=== PATIENT | female | born 1970 | race Two or more races ===

== ENCOUNTER 2018-11-14 08:00 | Outpatient (CLI) | payer MEDICAID ==
[2018-11-14 18:11] LABS: BASOPHILS % (AUTO) 0.4 %; EOSINOPHILS # (AUTO) 0.3 10^3/uL (0.0-0.7); EOSINOPHILS % (AUTO) 6.9 %; HGB - HEMOGLOBIN 13.5 g/dL (12.0-16.0); LYMPHOCYTES # (AUTO) 2.1 10^3/uL (1.5-3.5); LYMPHOCYTES % (AUTO) 46.6 %; MEAN CORPUSCULAR HEMOGLOBIN 29.9 pg (27.0-31.0); MEAN CORPUSCULAR HGB CONC 33.5 g/dL (32.0-36.0); MEAN CORPUSCULAR VOLUME 89.3 fL (81.0-99.0); MEAN PLATELET VOLUME 8.4 fL (7.9-10.8); MONOCYTES # (AUTO) 0.2 10^3/uL (0.0-1.0); MONOCYTES % (AUTO) 5.2 %; NEUTROPHILS # (AUTO) 1.8 10^3/uL (1.5-6.6); NEUTROPHILS % (AUTO) 40.9 %; PLT - PLATELET COUNT 287 10^3/uL (130-450); RED BLOOD COUNT 4.52 10^6/uL (4.20-5.40); RED CELL DISTRIBUTION WIDTH 12.5 % (12.0-15.0); WHITE BLOOD COUNT 4.4 x10^3/uL (4.8-10.8)
[2018-11-14 19:08] LABS: ALBUMIN 3.9 g/dL (3.2-5.5); ALBUMIN/GLOBULIN RATIO 1.4 (1.0-2.2); ALKALINE PHOSPHATASE 43 IU/L (42-121); ALT ALANINE AMINOTRANSFERASE 21 IU/L (10-60); AST ASPARTATE AMINOTRANSFERASE 18 IU/L (10-42); BILIRUBIN,TOTAL 0.9 mg/dL (0.2-1.0); BUN - BLOOD UREA NITROGEN 17 mg/dL (6-20); CARBON DIOXIDE - CO2 27 mmol/L (21-32); CHLORIDE 103 mmol/L (101-111); CHOL/HDL RATIO 3.2 (<4.4); CHOLESTEROL 167 mg/dL; CREATININE 0.5 mg/dL (0.4-1.0); GFR - MDRD 131 (>89); GLUCOSE 89 mg/dL (70-100); HDL CHOLESTEROL 53 mg/dL; SODIUM 136 mmol/L (135-145); TOTAL PROTEIN 6.6 g/dL (6.7-8.2)
[2018-11-14 19:49] LABS: HEMOGLOBIN A1C 0.48 g/dL; HEMOGLOBIN A1C % 5.3 % (4.6-6.2)
[2018-11-14 19:52] LABS: LDL CHOLESTEROL,DIRECT 123 mg/dL; LDLD/HDL RATIO 2.3 (<4.4)
== END 2018-11-14 23:59 | disposition home or self-care (01) ==
LOC: LAB.S 08:00
PROVIDERS: ATTEND Nurse Practitioner
DX: Z13.6 Encounter for screening for cardiovascular disorders (principal); Z13.89 Encounter for screening for other disorder; Z13.1 Encounter for screening for diabetes mellitus; Z13.29 Encounter for screening for other suspected endocrine disorder
CPT/HCPCS: 36415; 80053; 80061; 82306; 83036; 83721; 84443; 85025

== ENCOUNTER 2018-12-07 14:37 | Outpatient (CLI) | payer MEDICAID ==
--- NOTE | 2018-12-08 09:36 | Mammography Report ---
Reason: MAMMOGRAM YEARLY SCREENINGF Procedure Date: 12/07/2018 Accession Number: [id number] / [id number] Procedure: ANETTE - Screening Mammo w/[facility] CPT Code: FULL RESULT: EXAM: Screening Mammo w/[facility] DATE: 12/07/2018 3:07 PM CLINICAL HISTORY: Screening encounter. No reported risk factors. TECHNIQUE: (B) - Bilateral CC, laterally exaggerated CC, MLO views were obtained. COMPARISON: 04/07/2016 through 04/01/2012. PARENCHYMAL PATTERN: (VD) - The breast(s) demonstrate(s) extremely dense parenchyma, limiting the sensitivity of mammography. FINDINGS: In the right breast approximately 4.1 cm deep to the nipple centrally is an ill-defined hyperdense increasing focal asymmetry possibly associated with calcifications which requires additional mammographic imaging including spot magnification views and ultrasound, best seen on cc view, 3-D image 34. In the left breast is a posterior area of calcifications which is increased in prominence over time, 4.4 cm deep to the nipple on the MLO view and 5.5 cm deep to the nipple on the cc view, 3-D cc image 10 and possibly 3-D image and MLO projection, 30. This finding requires additional mammographic and sonographic workup including spot magnification views. IMPRESSION: Incomplete examination. BI-RADS category 0. RECOMMENDATION: (ADDMU) - Additional views using both Mammography and Ultrasound recommended. Additional mammography and ultrasound examination of the left and right breasts including spot magnification views on both sides. BI-RADS CATEGORY: (0) - Incomplete Examination - need additional evaluation. STANDARD QUALIFYING STATEMENTS: 1. This examination was not reviewed with the aid of Computer-Aided Detection (CAD). 2. A negative or benign imaging report should not preclude biopsy if clinically suspicious findings are present. 3. Dense breasts may obscure an underlying neoplasm. 4. This examination was reviewed with the aid of 3D breast imaging (tomosynthesis).
== END 2018-12-07 14:38 | disposition home or self-care (01) ==
LOC: DI 14:37
PROVIDERS: ATTEND Nurse Practitioner
DX: Z12.31 Encounter for screening mammogram for malignant neoplasm of breast (principal); R92.1 Mammographic calcification found on diagnostic imaging of breast
CPT/HCPCS: 77063; 77067

== ENCOUNTER 2018-12-23 09:38 | Outpatient (CLI) | payer MEDICAID ==
--- NOTE | 2018-12-23 13:08 | Mammography Report ---
Reason: ABNORMAL MAMMOGRAM Procedure Date: 12/23/2018 Accession Number: [id number] / [id number] Procedure: ANETTE - Diag Special Views Dig Bilat CPT Code: FULL RESULT: EXAM: Diag Special Views Dig Bilat DATE: 12/23/2018 10:22 AM CLINICAL HISTORY: Diagnostic examination. The patient is recalled from screening for a increasing right breast focal asymmetry in the left breast increasing area of calcifications. TECHNIQUE: (B) - Bilateral bilateral ML views as well as right spot CC and spot MLO views and left spot magnified ML and left spot magnified CC views. COMPARISON: 12/07/2018 through 04/01/2012. PARENCHYMAL PATTERN: (VD) - The breast(s) demonstrate(s) extremely dense parenchyma, limiting the sensitivity of mammography. FINDINGS: Right: The right breast focal asymmetry resolves with spot views and no mass or architectural distortion is identified tomographically. There are no suspicious masses, calcifications, or areas of distortion in the right breast. Negative examination. BI-RADS Category 1 for the right breast. Left: The left breast grouping of calcifications approximately 5.8 cm from the nipple in the retroareolar breast cone posteriorly is confirmed on spot magnified ML and spot magnified CC views with probably benign morphology. There are no suspicious masses, calcifications or areas of distortion in the left breast. IMPRESSION: Probably Benign. BI-RADS category 3. RECOMMENDATION: (6MOS) - Recommend 6 month follow-up exam. With spot magnification views of the left breast only. The right breast returns to screening. BI-RADS CATEGORY: (3) - Probably Benign. STANDARD QUALIFYING STATEMENTS: 1. This examination was not reviewed with the aid of Computer-Aided Detection (CAD). 2. A negative or benign imaging report should not preclude biopsy if clinically suspicious findings are present. 3. Dense breasts may obscure an underlying neoplasm. 4. This examination was reviewed with the aid of 3D breast imaging (tomosynthesis).
== END 2018-12-23 09:39 | disposition home or self-care (01) ==
LOC: DI 09:38
PROVIDERS: ATTEND Nurse Practitioner
DX: R92.1 Mammographic calcification found on diagnostic imaging of breast (principal)
CPT/HCPCS: 77062; 77066

== ENCOUNTER 2019-07-13 09:00 | Outpatient (CLI) | payer MEDICAID ==
--- NOTE | 2019-07-13 14:06 | Mammography Report ---
Reason: ABN MAMMO - 6 MONTH F U Procedure Date: 07/13/2019 Accession Number: [id number] / [id number] Procedure: ANETTE - Diagnostic Dig LT CPT Code: Final Report FULL RESULT: EXAM: Diagnostic Dig LT DATE: 07/13/2019 10:00 AM CLINICAL HISTORY: Six-month follow-up of probably benign mammographic calcifications. TECHNIQUE: (L) - Left left spot magnified CC, left spot CC, left ML and left spot magnified ML as well as left spot ML views are obtained. COMPARISON: 12/23/2018 through 04/02/2009. PARENCHYMAL PATTERN: (VD) - The breast(s) demonstrate(s) extremely dense parenchyma, limiting the sensitivity of mammography. FINDINGS: The left breast grouping of calcifications in the posterior left breast approximately 5.7 cm from the nipple is redemonstrated without suspicious interval change, probably benign. There are no suspicious masses, calcifications, or areas of distortion. IMPRESSION: Probably Benign. BI-RADS category 3. RECOMMENDATION: (6MOS) - Recommend 6 month follow-up exam. BI-RADS CATEGORY: (3) - Probably Benign. STANDARD QUALIFYING STATEMENTS: 1. This examination was not reviewed with the aid of Computer-Aided Detection (CAD). 2. A negative or benign imaging report should not preclude biopsy if clinically suspicious findings are present. 3. Dense breasts may obscure an underlying neoplasm. 4. This examination was reviewed with the aid of 3D breast imaging (tomosynthesis).
== END 2019-07-13 09:01 | disposition home or self-care (01) ==
LOC: DI 09:00
PROVIDERS: ATTEND Internal Medicine
DX: R92.1 Mammographic calcification found on diagnostic imaging of breast (principal)

== ENCOUNTER 2019-07-23 09:09 | Outpatient (CLI) | payer MEDICAID ==
--- NOTE | 2019-07-24 02:40 | Ultrasound Report ---
Reason: ENLARGED UTERUS Procedure Date: 07/23/2019 Accession Number: [id number] / [id number] Procedure: US - Pelvic w/Transvaginal CPT Code: Final Report FULL RESULT: EXAM: PELVIC ULTRASOUND EXAM DATE: 07/23/2019 10:51 AM. CLINICAL HISTORY: ENLARGED UTERUS. COMPARISON: 11/01/2009. TECHNIQUE: Realtime transabdominal pelvic scan performed to identify the uterus and adnexa and as an overview of other pelvic structures, followed by transvaginal scan to provide greater detail of the uterus and adnexa, with static image documentation. FINDINGS: Uterus: 8.8 x 4.0 x 4.5 cm, volume 83 cc. Anteverted position. Normal overall size. Masses: Posterior right-sided intramural mass at the cervix measuring 2.4 x 2.3 x 2.4 cm. Endometrium: 3 mm. Normal. Cervix: As noted above, posterior right-sided intramural mass in the cervix. Right Ovary: 2.8 x 2.2 x 2.8 cm, volume 9.2 cc. Small cyst measuring 2.1 x 1.3 x 2.0 cm. Normal Doppler flow signal seen in the ovary. Left Ovary: Not seen due to bowel gas. Free Fluid: None. Other: None. IMPRESSION: 1. Intramural mass in the cervix measuring 2.4 x 2.3 x 2.4 cm, possibly fibroid. Other cervical pathology including malignancy not entirely excluded. 2. Right ovary appears normal. Left ovary not seen due to bowel gas. RADIA
== END 2019-07-23 09:10 | disposition home or self-care (01) ==
LOC: DI 09:09
PROVIDERS: ATTEND Obstetrics & Gynecology
DX: N88.9 Noninflammatory disorder of cervix uteri, unspecified (principal)
CPT/HCPCS: 76830; 76856

== ENCOUNTER 2019-09-07 08:06 | Day surgery (SDC) | payer MEDICAID ==
[2019-09-07] MEDS ORDERED: LACTATED RINGERS 1,000 ML IV ONE (08:08)
[2019-09-07] MEDS ORDERED: fentaNYL 250 MCG/5 ML VIAL IVP ONE (09:46)
[2019-09-07] MEDS ORDERED: MIDAZOLAM 2 MG/2 ML VIAL IVP ONE (09:46)
[2019-09-07] MEDS ORDERED: LACTATED RINGERS 500 ML IV ONE (10:28)
[2019-09-07 11:13] VITALS: BP 104/66
== END 2019-09-07 08:07 | disposition home or self-care (01) ==
LOC: SDS 08:06
PROVIDERS: ATTEND Surgery
DX: Z12.11 Encounter for screening for malignant neoplasm of colon (principal); K64.8 Other hemorrhoids; K57.30 Diverticulosis of large intestine without perforation or abscess without bleeding
CPT/HCPCS: 45378; J3010; J7120

== ENCOUNTER 2019-10-23 14:55 | Outpatient (CLI) | payer MEDICAID ==
--- NOTE | 2019-10-24 09:47 | Ultrasound Report ---
Reason: CERVICAL FIBROID Procedure Date: 10/23/2019 Accession Number: [id number] / [id number] Procedure: US - Pelvic w/Transvaginal CPT Code: Final Report FULL RESULT: EXAM: PELVIC ULTRASOUND EXAM DATE: 10/23/2019 04:40 PM. CLINICAL HISTORY: Cervical fibroid. COMPARISON: PELVIC W/TRANSVAGINAL 07/23/2019 9:17 AM. TECHNIQUE: Realtime transabdominal pelvic scan performed to identify the uterus and adnexa and as an overview of other pelvic structures, followed by transvaginal scan to provide greater detail of the uterus and adnexa, with static image documentation. FINDINGS: Uterus: 7.7 x 3.3 x 4.7 cm, volume 63 cc. Anteverted position. Normal overall size and echotexture. Masses: None. Endometrium: 5 mm. Normal. Cervix: There is a probable posterior intramural cervical fibroid measuring 2.7 x 2.2 x 2.2 cm, previously 2.4 x 2.4 x 2.3, not significantly changed. The margins of the lesion are ill-defined. Trace fluid in the endocervical canal present. Right Ovary: 2.4 x 1.5 x 2.5 cm, volume 4.8 cc. Normal echotexture and blood flow. Left Ovary: 3.5 x 2.2 x 2.5 cm, volume 10.5 cc. Normal echotexture and blood flow. Free Fluid: None. Other: None. IMPRESSION: 1. 2.7 cm probable posterior intramural cervical fibroid not significantly changed given the expected ultrasound measurement variability. The margins are ill-defined as before. An additional 12 month follow-up may be considered. 2. Adnexa within normal limits. RADIA
== END 2019-10-23 14:56 | disposition home or self-care (01) ==
LOC: DI 14:55
PROVIDERS: ATTEND Obstetrics & Gynecology
DX: D25.9 Leiomyoma of uterus, unspecified (principal)
CPT/HCPCS: 76830; 76856

== ENCOUNTER 2020-01-30 09:12 | Outpatient (CLI) | payer MEDICAID ==
--- NOTE | 2020-01-31 15:51 | Mammography Report ---
BILATERAL DIGITAL DIAGNOSTIC MAMMOGRAM 3D/2D: 01/30/2020 CLINICAL: Patient returns for 6 month follow up left breast for calcifications. routine screening rig ht breast. Comparison is made to exams dated: 07/13/2019 mammogram, 12/23/2018 mammogram, 04/07/2016 mammogram, mammogram, 07/10/2013 mammogram, and 04/01/2012 mammogram - [facility]. The tissue of both breasts is extremely dense, which lowers the sensitivity of mammography. There is an irregular equal density asymmetry with an indistinct margin in the right breast middle de pth central to the nipple seen on the craniocaudal view only but likely within the superior right kat ast. There are stable grouped fine calcifications in the left breast at 11 o'clock middle depth. No other significant masses or calcifications are seen in either breast. IMPRESSION: INCOMPLETE: NEEDS ADDITIONAL IMAGING EVALUATION The irregular equal density asymmetry in the right breast middle depth central to the nipple seen on the craniocaudal view only is indeterminate. An ultrasound is recommended and will be performed imme diately following this study. The stable grouped fine calcifications in the left breast at 11 o'clock middle depth resemble milk of calcium and are probably benign. A follow-up mammogram in 6 months is recommended. This exam was interpreted at Station ID: [id number]. NOTE: For mammograms, a report in lay terms will be sent to the patient. Approximately 15% of breast malignancies will not be visualized mammographically. In the management of a palpable breast mass, a negative mammogram must not discourage biopsy of a clinically suspicious lesion. Electronically Signed By: Salinas Perry M.D. ddp/:01/30/2020 11:53:56 ACR BI-RADS Category 0: Incomplete 3340F PARENCHYMAL PATTERN: (VD) - The breast(s) demonstrate(s) extremely dense parenchyma, limiting the sen sitivity of mammography. BI-RADS CATEGORY: (0) - 0 Ultrasound [id number] Immediate follow-up LATERALITY: (B)
--- NOTE | 2020-01-31 15:51 | Ultrasound Report ---
LIMITED ULTRASOUND OF RIGHT BREAST: 01/30/2020 CLINICAL: Patient returns today to evaluate a density in the right breast. Comparison is made to exams dated: 01/30/2020 mammogram, 07/13/2019 mammogram, 12/23/2018 mammogram, mammogram, 11/02/2014 mammogram, and 07/10/2013 mammogram - [facility]. Color flow and real-time ultrasound of the right breast 12 o'clock region were performed on the areas of interest. There is a 1.2 cm x 0.3 cm x 1.1 cm oval cyst with a septated internal wall in the right breast at 12 o'clock anterior depth. This oval cyst displays a well-defined boundary and posterior acoustic enha ncement. This likely correlates with mammography findings. Color flow imaging demonstrates that the re is no vascularity present. IMPRESSION: PROBABLY BENIGN The 1.2 cm x 0.3 cm x 1.1 cm oval cyst in the right breast is consistent with a complicated cyst and is probably benign. Follow-up mammogram and ultrasound in 6 months are recommended. A follow-up mammogram and an ultrasound in 6 months are recommended to demonstrate stability. This exam was interpreted at Station ID: [id number]. Electronically Signed By: Salinas Perry M.D. ddmignon/:01/30/2020 12:18:30 Ultrasound BI-RADS: 3 Probably benign BI-RADS CATEGORY: (3) - 3 Mammo and US [id number] 6 month follow-up LATERALITY: (B)
== END 2020-01-30 09:13 | disposition home or self-care (01) ==
LOC: DI 09:12
PROVIDERS: ATTEND Obstetrics & Gynecology
DX: N60.01 Solitary cyst of right breast (principal)
CPT/HCPCS: 76642; 77066

== ENCOUNTER 2020-04-17 10:59 | Outpatient (CLI) | payer MEDICAID ==
[2020-04-17 15:34] LABS: % IRON SATURATION 40 % (20-50); CHOL/HDL RATIO 3.2 (<4.4); CHOLESTEROL 215 mg/dL; HDL CHOLESTEROL 68 mg/dL; IRON 119 ug/dL (28-170); LDL CHOLESTEROL,CALCULATED 139 mg/dL; TOTAL IRON BINDING CAPACITY 297 ug/dL (250-450); TRANSFERRIN 212 mg/dL (192-382); VLDL CHOLESTEROL 8 mg/dL
[2020-04-17 15:45] LABS: FERRITIN 87.3 ng/mL (11.0-306.8)
[2020-04-17 19:59] LABS: HEMOGLOBIN A1c% 5.5 % (4.27-6.07)
== END 2020-04-17 11:00 | disposition home or self-care (01) ==
LOC: LAB.S 10:59
PROVIDERS: ATTEND Obstetrics & Gynecology
DX: Z13.220 Encounter for screening for lipoid disorders (principal); E55.9 Vitamin D deficiency, unspecified; R42 Dizziness and giddiness; R53.83 Other fatigue; Z13.1 Encounter for screening for diabetes mellitus
CPT/HCPCS: 36415; 80061; 82306; 82728; 83036; 83540; 83721; 84443; 84466

== ENCOUNTER 2020-09-17 08:57 | Outpatient (CLI) | payer MEDICAID ==
--- NOTE | 2020-09-18 09:48 | Ultrasound Report ---
LIMITED ULTRASOUND OF RIGHT BREAST: 09/17/2020 CLINICAL: Patient returns today to evaluate an asymmetry in the right breast. Comparison is made to exams dated: 09/17/2020 mammogram, 01/30/2020 ultrasound, 01/30/2020 mammogram, mammogram, 12/23/2018 mammogram, and 04/07/2016 mammogram - [facility]. Color flow and real-time ultrasound of the right breast 12 o'clock region were performed. Golden scale images of the real-time examination were reviewed. There is a 0.7 cm x 0.6 cm x 0.5 cm oval cyst with a septated internal wall in the right breast at 12 o'clock anterior depth 2 cm from the nipple. This oval cyst is anechoic with a well-defined boundar y and posterior acoustic enhancement. This correlates with mammography findings. Color flow imaging demonstrates that there is no vascularity present. The cyst is more rounded in appearance and slight ly decreased in size. The septation is less conspicuous. IMPRESSION: PROBABLY BENIGN The 0.7 cm oval complicated cyst in the right breast is probably benign. Follow-up mammogram and ultrasound in 6 months is recommended. Exam findings were conveyed to the patient. This exam was interpreted at Station ID: [id number]. Electronically Signed By: Fred Ruffin M.D. slc/:09/17/2020 10:52:43 Ultrasound BI-RADS: 3 Probably benign BI-RADS CATEGORY: (3) - 3 Mammo and US [id number] Immediate follow-up LATERALITY: (B)
--- NOTE | 2020-09-18 09:48 | Mammography Report ---
BILATERAL DIGITAL DIAGNOSTIC MAMMOGRAM 3D/2D: 09/17/2020 CLINICAL: Patient returns for a 6 month follow up of bilateral breasts. Comparison is made to exams dated: 01/30/2020 ultrasound, 01/30/2020 mammogram, 07/13/2019 mammogram, 12/23/2018 mammogram, 04/07/2016 mammogram, and 11/02/2014 mammogram - [facility]. The tissue of both breasts is extremely dense, which lowers the sensitivity of mammography. There is an irregular equal density asymmetry with an indistinct margin in the right breast middle de pth central to the nipple seen on the craniocaudal view only. This is not significantly changed. There are stable grouped fine calcifications in the left breast at 11 o'clock middle depth. No other significant masses or calcifications are seen in either breast. IMPRESSION: INCOMPLETE: NEEDS ADDITIONAL IMAGING EVALUATION 1) The irregular equal density asymmetry in the right breast middle depth central to the nipple seen on the craniocaudal view only is indeterminate. -A targeted ultrasound is recommended and will immediately follow. 2) The stable grouped fine calcifications in the left breast at 11 o'clock middle depth resemble milk of calcium and are probably benign. -A follow-up mammogram in 6 months is recommended to demonstrate long-term stability. This exam was interpreted at Station ID: [id number]. NOTE: For mammograms, a report in lay terms will be sent to the patient. Approximately 15% of breast malignancies will not be visualized mammographically. In the management of a palpable breast mass, a negative mammogram must not discourage biopsy of a clinically suspicious lesion. Electronically Signed By: Fred Ruffin M.D. slc/:09/17/2020 09:51:25 ACR BI-RADS Category 0: Incomplete 3340F PARENCHYMAL PATTERN: (VD) - The breast(s) demonstrate(s) extremely dense parenchyma, limiting the sen sitivity of mammography. BI-RADS CATEGORY: (0) - 0 Ultrasound [id number] Immediate follow-up LATERALITY: (B)
== END 2020-09-17 08:58 | disposition home or self-care (01) ==
LOC: DI 08:57
PROVIDERS: ATTEND Obstetrics & Gynecology
DX: N60.01 Solitary cyst of right breast (principal)

== ENCOUNTER 2020-10-17 09:38 | Outpatient (CLI) | payer MEDICAID ==
--- NOTE | 2020-10-17 15:28 | Ultrasound Report ---
PROCEDURE: Pelvic w/Transvaginal INDICATIONS: CERVICAL FIBROID TECHNIQUE: Real-time scanning was performed of the pelvic organs, with image documentation. Additional endovagi nal scanning was necessary due to incomplete visualization of the adnexal and endometrial structures by transabdominal scanning. COMPARISON: 10/23/2019. FINDINGS: No pathologic free abdominal or pelvic fluid. Uterus: Uterus is normal in size at 7.5 x 3.4 x 4.7 cm. Heterogeneous uterine echotexture. Redemons tration of slightly ill-defined heterogeneous intramural lesion within the cervix measuring 2.6 x 2.0 x 2.2 cm. This previously measured 2.7 x 2.2 x 2.2 cm cyst. Again, this is consistent with a cervica l fibroid. Incidental note of nabothian cysts. The endometrium measures 6 mm in combined thickness. Ovaries: Right ovary measures 3.1 x 2.0 x 2.2 cm. Ovarian volume measures 8 mL. Incidental 1.4 cm do minant follicle. Left ovary measures 2.1 x 1.1 x 1.7 cm with ovarian volume of 2 mL. No suspicious ovarian or adnexal mass lesions. IMPRESSION: 1. Stable 2.6 cm probable intramural cervical fibroid. Otherwise, no suspicious abnormalities identif ied in the pelvis. Consider follow-up pelvic ultrasound in 12 months to document long-term stability. 2. Unremarkable sonographic evaluation of the bilateral ovaries/adnexa. Reviewed by: Kiran Hardin MD on 10/17/2020 3:27 PM PDT Approved by: Kiran Hardin MD on 10/17/2020 3:27 PM PDT Station ID: [id number]
== END 2020-10-17 09:39 | disposition home or self-care (01) ==
LOC: DI 09:38
PROVIDERS: ATTEND Obstetrics & Gynecology
DX: D25.9 Leiomyoma of uterus, unspecified (principal)

== ENCOUNTER 2021-04-04 09:31 | Outpatient (CLI) | payer MEDICAID ==
--- NOTE | 2021-04-07 10:20 | Mammography Report ---
BILATERAL DIGITAL DIAGNOSTIC MAMMOGRAM 3D/2D: 04/04/2021 CLINICAL: Patient returns for 6 month follow up on left breast for calcifications. Patient returns fo r a 6 month follow up of the right breast. Comparison is made to exams dated: 09/17/2020 ultrasound, 09/17/2020 mammogram, 01/30/2020 ultrasound, mammogram, 07/13/2019 mammogram, and 12/23/2018 mammogram - [facility]. The tissue of both breasts is extremely dense, which lowers the sensitivity of mammography. No significant masses, calcifications, or other findings are seen in either breast. There has been no significant interval change. IMPRESSION: NEGATIVE There is no mammographic evidence of malignancy. A 1 year screening mammogram is recommended. This exam was interpreted at Station ID: [id number]. NOTE: For mammograms, a report in lay terms will be sent to the patient. Approximately 15% of breast malignancies will not be visualized mammographically. In the management of a palpable breast mass, a negative mammogram must not discourage biopsy of a clinically suspicious lesion. Electronically Signed By: Victor Hugo Nye M.D., jr/francisca:04/04/2021 13:29:22 ACR BI-RADS Category 1: Negative 3341F PARENCHYMAL PATTERN: (VD) - The breast(s) demonstrate(s) extremely dense parenchyma, limiting the sen sitivity of mammography. BI-RADS CATEGORY: (1) - 1 RECOMMENDATION: (ANNUAL) - Recommend routine annual screening mammography. [id number] 1 year screening LATERALITY: (B)
== END 2021-04-04 09:32 | disposition home or self-care (01) ==
LOC: DI 09:31
PROVIDERS: ATTEND Obstetrics & Gynecology
DX: N63.20 Unspecified lump in the left breast, unspecified quadrant (principal); R92.1 Mammographic calcification found on diagnostic imaging of breast

== ENCOUNTER 2022-05-21 09:01 | Outpatient (CLI) | payer MEDICAID ==
--- NOTE | 2022-05-22 15:18 | Mammography Report ---
BILATERAL DIGITAL SCREENING MAMMOGRAM 3D/2D WITH EXAGGERATED CC: 05/21/2022 CLINICAL: Routine screening. Comparison is made to exams dated: 04/04/2021 mammogram, 09/17/2020 mammogram, 01/30/2020 mammogram, mammogram, 12/23/2018 mammogram, and 04/07/2016 mammogram - [facility]. Both breasts are extremely dense, which lowers the sensitivity of mammography (category d />75% gland ular tissue). No significant masses, calcifications, or other findings are seen in either breast. There has been no significant interval change. IMPRESSION: NEGATIVE There is no mammographic evidence of malignancy. A 1 year screening mammogram is recommended. This exam was interpreted at Station ID: [id number]. NOTE: For mammograms, a report in lay terms will be sent to the patient. Approximately 15% of breast malignancies will not be visualized mammographically. In the management of a palpable breast mass, a negative mammogram must not discourage biopsy of a clinically suspicious lesion. Electronically Signed By: Victor Hugo Nye M.D., jr/francisca:05/21/2022 17:48:26 ACR BI-RADS Category 1: Negative 3341F PARENCHYMAL PATTERN: (VD) - The breast(s) demonstrate(s) extremely dense parenchyma, limiting the sen sitivity of mammography. BI-RADS CATEGORY: (1) - 1 RECOMMENDATION: (ANNUAL) - Recommend routine annual screening mammography. [id number] 1 year screening LATERALITY: (B)
== END 2022-05-21 09:02 | disposition home or self-care (01) ==
LOC: DI 09:01
DX: Z12.31 Encounter for screening mammogram for malignant neoplasm of breast (principal)

== ENCOUNTER 2022-08-24 10:45 | Outpatient (CLI) | payer MEDICAID ==
[2022-08-24 14:15] LABS: BASOPHILS % (AUTO) 0.2 %; EOSINOPHILS # (AUTO) 0.2 10^3/uL (0.0-0.7); HCT - HEMATOCRIT 41.1 % (37.0-47.0); HGB - HEMOGLOBIN 13.4 g/dL (12.0-16.0); LYMPHOCYTES # (AUTO) 2.3 10^3/uL (1.5-3.5); LYMPHOCYTES % (AUTO) 51.1 %; MEAN CORPUSCULAR HEMOGLOBIN 28.8 pg (27.0-31.0); MEAN CORPUSCULAR HGB CONC 32.6 g/dL (32.0-36.0); MEAN CORPUSCULAR VOLUME 88.2 fL (81.0-99.0); MEAN PLATELET VOLUME 9.9 fL (7.9-10.8); MONOCYTES # (AUTO) 0.3 10^3/uL (0.0-1.0); MONOCYTES % (AUTO) 5.5 %; NEUTROPHILS # (AUTO) 1.7 10^3/uL (1.5-6.6); PLT - PLATELET COUNT 290 10^3/uL (130-450); RED BLOOD COUNT 4.66 10^6/uL (4.20-5.40); RED CELL DISTRIBUTION WIDTH 11.5 % (12.0-15.0); WHITE BLOOD COUNT 4.6 x10^3/uL (4.8-10.8)
[2022-08-24 14:48] LABS: THYROID STIMULATING HORMONE 0.99 uIU/mL (0.34-5.60)
[2022-08-25 18:17] LABS: ALBUMIN 4.1 g/dL (3.2-5.5); ALBUMIN/GLOBULIN RATIO 1.5 (1.0-2.2); ALKALINE PHOSPHATASE 60 IU/L (42-121); ALT ALANINE AMINOTRANSFERASE 18 IU/L (10-60); AST ASPARTATE AMINOTRANSFERASE 17 IU/L (10-42); BILIRUBIN,TOTAL 0.9 mg/dL (0.2-1.0); BUN - BLOOD UREA NITROGEN 15 mg/dL (6-20); CALCIUM 10.7 mg/dL (8.5-10.3); CARBON DIOXIDE - CO2 26 mmol/L (21-32); CHLORIDE 101 mmol/L (101-111); CHOL/HDL RATIO 3.7 (<4.4); CHOLESTEROL 223 mg/dL; CREATININE 0.5 mg/dL (0.4-1.0); GFR - MDRD 129 (>89); GLUCOSE 90 mg/dL (70-100); HDL CHOLESTEROL 61 mg/dL; LDL CHOLESTEROL,CALCULATED 151 mg/dL; LDL/HDL RATIO 2.5 (<4.4); POTASSIUM 4.5 mmol/L (3.5-5.0); SODIUM 140 mmol/L (135-145); TOTAL PROTEIN 6.9 g/dL (6.7-8.2); TRIGLYCERIDES 53 mg/dL; VLDL CHOLESTEROL 11 mg/dL
== END 2022-08-24 10:46 | disposition home or self-care (01) ==
LOC: LAB.S 10:45
PROVIDERS: ATTEND Registered Nurse
DX: Z13.228 Encounter for screening for other metabolic disorders (principal); Z13.220 Encounter for screening for lipoid disorders; Z13.21 Encounter for screening for nutritional disorder; Z13.29 Encounter for screening for other suspected endocrine disorder; Z13.0 Encounter for screening for diseases of the blood and blood-forming organs and certain disorders involving the immune mechanism
CPT/HCPCS: 36415; 80053; 80061; 82306; 83721; 84443; 85025

== ENCOUNTER 2022-08-28 10:14 | Outpatient (CLI) | payer MEDICAID | END 2022-08-28 10:15 | disposition home or self-care (01) | LOC: LAB.S 10:14 | PROVIDERS: ATTEND Family Medicine | DX: E83.52 Hypercalcemia (principal) | CPT/HCPCS: 36415; 82330; 83970 ==

== ENCOUNTER 2022-10-15 09:22 | Outpatient (CLI) | payer MEDICAID | END 2022-10-15 09:23 | disposition home or self-care (01) | LOC: LAB.S 09:22 | PROVIDERS: ATTEND Registered Nurse | DX: E83.52 Hypercalcemia (principal) | CPT/HCPCS: 36415; 82306; 82397 ==

== ENCOUNTER 2022-10-19 08:00 | Outpatient (CLI) | payer MEDICAID ==
--- NOTE | 2022-10-19 18:24 | XRAY Report ---
PROCEDURE: Shoulder 3 View LT INDICATIONS: CONTUSION OF LEFT SHOULDER TECHNIQUE: 3 views of the shoulder were acquired. COMPARISON: None. FINDINGS: Bones: No fractures or dislocations. No suspicious bony lesions. Visualized ribs appear intact. Soft tissues: No suspicious soft tissue calcifications. IMPRESSION: No acute osseous abnormality. Reviewed by: Fred Ruffin MD on 10/19/2022 6:23 PM PDT Approved by: Fred Ruffin MD on 10/19/2022 6:23 PM PDT Station ID: [id number]
== END 2022-10-19 23:59 | disposition home or self-care (01) ==
LOC: DI.S 08:00
PROVIDERS: ATTEND Physician Assistant Medical
DX: S40.012A Contusion of left shoulder, initial encounter (principal)

== ENCOUNTER 2023-06-21 14:51 | Outpatient (CLI) | payer MEDICAID ==
--- NOTE | 2023-06-22 12:21 | Mammography Report ---
BILATERAL DIGITAL SCREENING MAMMOGRAM 3D/2D WITH EXAGGERATED CC: 06/21/2023 CLINICAL: Routine screening. Comparison is made to exams dated: 05/21/2022 mammogram, 04/04/2021 mammogram, 09/17/2020 mammogram, 01/16 mammogram, 07/13/2019 mammogram, and 12/23/2018 mammogram - [facility]. Both breasts are extremely dense, which lowers the sensitivity of mammography (category d />75% gland ular tissue). No significant masses, calcifications, or other findings are seen in either breast. There has been no significant interval change. IMPRESSION: NEGATIVE There is no mammographic evidence of malignancy. A 1 year screening mammogram is recommended. Based on the Tyrer Cuzick model (a risk assessment model) the patients lifetime risk is 17.1% and he r 10 year risk is 5.0%. According to the ACR, ACS, and NCCN guidelines, an annual breast MRI exam anibal ng with mammogram is recommended if the patients lifetime risk is 20% or greater. This exam was interpreted at Station ID: [id number]. NOTE: For mammograms, a report in lay terms will be sent to the patient. Approximately 15% of breast malignancies will not be visualized mammographically. In the management of a palpable breast mass, a negative mammogram must not discourage biopsy of a clinically suspicious lesion. Electronically Signed By: Kiran orantes/francisca:06/21/2023 15:59:35 letter sent: No_Letter ACR BI-RADS Category 1: Negative 3341F PARENCHYMAL PATTERN: (VD) - The breast(s) demonstrate(s) extremely dense parenchyma, limiting the sen sitivity of mammography. BI-RADS CATEGORY: (1) - 1 Mammogram [id number] 1 year screening LATERALITY: (B)
== END 2023-06-21 14:52 | disposition home or self-care (01) ==
LOC: DI 14:51
DX: Z12.31 Encounter for screening mammogram for malignant neoplasm of breast (principal); R92.343 Mammographic extreme density, bilateral breasts

== ENCOUNTER 2023-09-29 11:01 | Outpatient (CLI) | payer MEDICAID ==
[2023-09-29 14:55] LABS: BASOPHILS % (AUTO) 0.4 %; EOSINOPHILS # (AUTO) 0.3 10^3/uL (0.0-0.7); EOSINOPHILS % (AUTO) 5.6 %; HCT - HEMATOCRIT 40.3 % (37.0-47.0); HGB - HEMOGLOBIN 13.5 g/dL (12.0-16.0); LYMPHOCYTES # (AUTO) 1.9 10^3/uL (1.5-3.5); LYMPHOCYTES % (AUTO) 36.4 %; MEAN CORPUSCULAR HEMOGLOBIN 29.1 pg (27.0-31.0); MEAN CORPUSCULAR HGB CONC 33.5 g/dL (32.0-36.0); MEAN CORPUSCULAR VOLUME 86.9 fL (81.0-99.0); MONOCYTES # (AUTO) 0.3 10^3/uL (0.0-1.0); MONOCYTES % (AUTO) 5.4 %; NEUTROPHILS # (AUTO) 2.8 10^3/uL (1.5-6.6); PLT - PLATELET COUNT 280 10^3/uL (130-450); RED BLOOD COUNT 4.64 10^6/uL (4.20-5.40); RED CELL DISTRIBUTION WIDTH 11.8 % (12.0-15.0); WHITE BLOOD COUNT 5.3 x10^3/uL (4.8-10.8)
[2023-09-29 15:38] LABS: ALBUMIN 4.3 g/dL (3.2-5.5); ALBUMIN/GLOBULIN RATIO 1.7 (1.0-2.2); ALKALINE PHOSPHATASE 84 IU/L (42-121); ALT ALANINE AMINOTRANSFERASE 18 IU/L (10-60); AST ASPARTATE AMINOTRANSFERASE 16 IU/L (10-42); BILIRUBIN,TOTAL 0.6 mg/dL (0.2-1.0); BUN - BLOOD UREA NITROGEN 14 mg/dL (6-20); CALCIUM 9.7 mg/dL (8.5-10.3); CARBON DIOXIDE - CO2 30 mmol/L (21-32); CHLORIDE 104 mmol/L (101-111); CHOL/HDL RATIO 2.9 (<4.4); CHOLESTEROL 192 mg/dL; CREATININE 0.5 mg/dL (0.6-1.3); GFR - MDRD 129 (>89); GLUCOSE 92 mg/dL (74-104); HDL CHOLESTEROL 66 mg/dL; LDL CHOLESTEROL,CALCULATED 117 mg/dL; LDL/HDL RATIO 1.8 (<4.4); POTASSIUM 3.9 mmol/L (3.5-4.5); SODIUM 138 mmol/L (135-145); TOTAL PROTEIN 6.8 g/dL (6.4-8.9); TRIGLYCERIDES 45 mg/dL (48-352); VLDL CHOLESTEROL 9 mg/dL
[2023-09-29 15:42] LABS: THYROID STIMULATING HORMONE 0.68 uIU/mL (0.34-5.60)
== END 2023-09-29 11:02 | disposition home or self-care (01) ==
LOC: LAB.S 11:01
PROVIDERS: ATTEND Registered Nurse
DX: E55.9 Vitamin D deficiency, unspecified (principal); Z13.228 Encounter for screening for other metabolic disorders; Z13.220 Encounter for screening for lipoid disorders; Z13.29 Encounter for screening for other suspected endocrine disorder; Z13.0 Encounter for screening for diseases of the blood and blood-forming organs and certain disorders involving the immune mechanism
CPT/HCPCS: 36415; 80053; 80061; 82306; 83721; 84443; 85025

== ENCOUNTER 2024-01-11 11:35 | Outpatient (CLI) | payer MEDICAID | END 2024-01-11 11:36 | disposition home or self-care (01) | LOC: LAB.S 11:35 | PROVIDERS: ATTEND Internal Medicine | DX: R51.9 Headache, unspecified (principal) | CPT/HCPCS: 36415; 85651; 86140 ==

== ENCOUNTER 2024-02-14 09:18 | Outpatient (CLI) | payer MEDICAID ==
--- NOTE | 2024-02-14 21:13 | CT Report ---
PROCEDURE: Head WO INDICATIONS: HEADACHE TECHNIQUE: Noncontrast 4.5 mm thick angled axial sections acquired from the foramen magnum to the vertex. For r adiation dose reduction, the following was used: automated exposure control, adjustment of mA and/or kV according to patient size. COMPARISON: CT head 03/01/2014 FINDINGS: Image quality: Excellent. CSF spaces: Basal cisterns are patent. No extra-axial fluid collections. Ventricles are normal in size and shape. Brain: No midline shift. No intracranial masses or hemorrhage. Golden-white matter interface is norm al. Skull and face: Calvarium and visualized facial bones are intact, without suspicious lesions. Sinuses: Visualized sinuses and mastoids are clear. IMPRESSION: No acute intracranial pathology. Reviewed by: Sophie Ham MD on 02/14/2024 9:11 PM PDT Approved by: Sophie Ham MD on 02/14/2024 9:11 PM PDT Station ID: [id number]
== END 2024-02-14 09:19 | disposition home or self-care (01) ==
LOC: DI 09:18
PROVIDERS: ATTEND Internal Medicine
DX: R51.9 Headache, unspecified (principal)